=== PATIENT | male | born 1975 | race Caucasian/White ===

== ENCOUNTER 2020-08-24 21:06 | Emergency (ER) | payer OTHER ==
[2020-08-24 21:15] VITALS: RESP 18; TEMP 98
[2020-08-24] MEDS ORDERED: hydrALAZINE HCL 20 MG/ML 1 ML VIAL IVP STA (21:33)
[2020-08-24] MEDS ORDERED: LORazepam 2 MG/ML INJ IV STA (21:33)
[2020-08-24] MEDS ORDERED: SODIUM CHLORIDE 0.9% 1,000 ML IV ONE (21:34)
--- NOTE | 2020-08-24 21:36 | ED ---
General Adult HPI - General Source: patient, EMS, RN notes reviewed, old records reviewed Mode of arrival: EMS Limitations: no limitations <Jarrod Long - Last Filed: 08/24/20 22:09> <Jarrod Farr - Last Filed: 08/24/20 23:08> - General Chief complaint: Recheck/Abnormal Lab/Rx Stated complaint: Hypertension Time Seen by Provider: 08/24/20 21:10 - History of Present Illness Initial comments: Is a 45-year-old male who presents emergency department stating that he went to the rehab center for heroin abuse methamphetamine abuse alcohol abuse. Patient states on arrival his blood pressure okay but later in the day he started having some blurred vision and felt a little bit lightheaded and they took his blood pressure was extremely elevated so he came to the emergency department. Patient denies shortness of breath difficulty breathing or chest pain. Patient denies any palpitations. Heroin and methamphetamine earlier in the day. Patient denies any abdominal pain patient denies nausea vomiting diarrhea. (Jarrod Long) - Related Data Home Medications Medication Instructions Recorded Confirmed Acetaminophen [Tylenol] 650 mg PO Q4H PRN 08/24/20 08/24/20 Calcium/Magnesium 1000mg/500mg 1 tab PO TID PRN 08/24/20 08/24/20 Calcium/Magnesium/Zinc 2 tab PO TID PRN 08/24/20 08/24/20 [Hknldhr-Amulljhej-Init Tablet] Chlorpheniramine Maleate 4 mg PO Q4H PRN 08/24/20 08/24/20 [Chlor-Trimeton] Ibuprofen [Motrin] 600 mg PO Q6H PRN 08/24/20 08/24/20 Losartan [Cozaar] 50 mg PO DAILY@59908/24/20 08/24/20 Multivitamins, Thera [Multivitamin 1 tab PO DAILY@59908/24/20 08/24/20 (formulary)] Thiamine [Vitamin B-1] 100 mg PO DAILY@59908/24/20 08/24/20 Zofran 2mg/Ml 4 mg IM Q6H PRN 08/24/20 08/24/20 amLODIPine [Norvasc] 5 mg PO DAILY@59908/24/20 08/24/20 busPIRone HCl [Buspar] 10 mg PO DIRECTED PRN 08/24/20 08/24/20 cloNIDine HCL [Catapres] 0.1 mg PO Q4H PRN 08/24/20 08/24/20 ondansetron HCL [Zofran] 8 mg PO Q6H PRN 08/24/20 08/24/20 traZODone HCL 50 - 150 mg PO HS 08/24/20 08/24/20 Previous Rx's Medication Instructions Recorded lisinopriL [Zestril] 10 mg PO DAILY #30 tab 08/24/20 Allergies Allergy/AdvReac Type Severity Reaction Status Date / Time bee venom protein (honey bee) Allergy Anaphylaxis Verified 08/24/20 21:42 Review of Systems ROS Other: All systems not noted in ROS Statement are negative. <Jarrod Long - Last Filed: 08/24/20 22:09> ROS Other: All systems not noted in ROS Statement are negative. <Jarrod Farr - Last Filed: 08/24/20 23:08> ROS Statement: Those systems with pertinent positive or pertinent negative responses have been documented in the HPI. Past Medical History Past Medical History: Hypertension History of Any Multi-Drug Resistant Organisms: None Reported Past Surgical History: Orthopedic Surgery, Tonsillectomy Additional Past Surgical History / Comment(s): L forearm metal plate 1996 Past Psychological History: No Psychological Hx Reported Smoking Status: Heavy tobacco smoker Past Alcohol Use History: Abuse Past Drug Use History: Heroin <Jarrod Long - Last Filed: 08/24/20 22:09> General Exam Limitations: no limitations <Jarrod Lnog - Last Filed: 08/24/20 22:09> General appearance: alert, in no apparent distress Head exam: Present: atraumatic, normocephalic, normal inspection Eye exam: Present: normal appearance, PERRL, EOMI. Absent: scleral icterus, con junctival injection, periorbital swelling ENT exam: Present: normal exam, mucous membranes moist Neck exam: Present: normal inspection. Absent: tenderness, meningismus, lymphadenopathy Respiratory exam: Present: normal lung sounds bilaterally. Absent: respiratory distress, wheezes, rales, rhonchi, stridor Cardiovascular Exam: Present: regular rate, normal rhythm, normal heart sounds. Absent: systolic murmur, diastolic murmur, rubs, gallop, clicks GI/Abdominal exam: Present: soft, normal bowel sounds. Absent: distended, tenderness, guarding, rebound, rigid Extremities exam: Present: normal inspection, full ROM, normal capillary refill. Absent: tenderness, pedal edema, joint swelling, calf tenderness Back exam: Present: normal inspection Neurological exam: Present: alert, oriented X3, CN II-XII intact Psychiatric exam: Present: normal affect, normal mood Skin exam: Present: warm, dry, intact, normal color. Absent: rash <Jarrod Farr - Last Filed: 08/24/20 23:08> - General Exam Comments Initial Comments: GENERAL: Patient is well-developed and well-nourished. Patient is nontoxic and well- hydrated and is in no acute distress. ENT: Neck is soft and supple. No significant lymphadenopathy is noted. Oropharynx is clear. Moist mucous membranes. Neck has full range of motion without eliciting any pain. EYES: The sclera were anicteric and conjunctiva were pink and moist. Extraocular movements were intact and pupils were equal round and reactive to light. Eyelids were unremarkable. PULMONARY: Unlabored respirations. Good breath sounds bilaterally. No audible rales rhonchi or wheezing was noted. CARDIOVASCULAR: There is a regular rate and rhythm without any murmurs gallops or rubs. ABDOMEN: Soft and nontender with normal bowel sounds. SKIN: Skin is clear with no lesions or rashes and otherwise unremarkable. NEUROLOGIC: Patient is alert and oriented x3. Cranial nerves II through XII are grossly intact. Motor and sensory are also intact. Normal speech, volume and content. Symmetrical smile. MUSCULOSKELETAL: Normal extremities with adequate strength and full range of motion. LYMPHATICS: No significant lymphadenopathy is noted PSYCHIATRIC: Normal psychiatric evaluation. (Jarrod Long) Course <Jarrod Farr - Last Filed: 08/24/20 23:08> Vital Signs 08/24/20 08/24/20 21:07 22:30 Temperature 98.0 F Pulse Rate 85 88 Respiratory 18 18 Rate Blood Pressure 193/117 185/106 O2 Sat by Pulse 97 99 Oximetry - Reevaluation(s) Reevaluation #1: 08/24/20 23:07 Medical record is reviewed (Jarrod Farr) Reevaluation #2: 08/24/20 23:07 Patient is blood pressures improved (Jarrod Farr) Reevaluation #3: 08/24/20 23:07 Patient informed of results are questions are answered (Jarrod Farr) Medical Decision Making <Jarrod Long - Last Filed: 08/24/20 22:09> - Lab Data Result diagrams: 08/24/20 21:45 08/24/20 21:45 <Jarrod Farr - Last Filed: 08/24/20 23:08> - Medical Decision Making EKG shows normal sinus rhythm at 65 bpm PA interval 156 QRS is 96 QT interval 448 QTC is 465. Patient's EKG shows no ST segment elevation or depression. Dr. Farr be taking over the care of bed 5. (Jarrod Long) 45 male to the ER for evaluation patient does have elevated blood pressure. Patient's blood pressures well-controlled currently will start on blood pressure medication and discharged home (Jarrod Farr) - Lab Data Lab Results 08/24/20 08/24/20 Range/Units 21:45 21:45 WBC 7.9 (3.8-10.6) k/uL RBC 4.68 (4.30-5.90) m/uL Hgb 14.8 (13.0-17.5) gm/dL Hct 44.5 (39.0-53.0) % MCV 95.1 (80.0-100.0) fL MCH 31.7 (25.0-35.0) pg MCHC 33.4 (31.0-37.0) g/dL RDW 12.6 (11.5-15.5) % Plt Count 248 (150-450) k/uL MPV 7.2 Neutrophils % 65 % Lymphocytes % 27 % Monocytes % 4 % Eosinophils % 1 % Basophils % 1 % Neutrophils # 5.1 (1.3-7.7) k/uL Lymphocytes # 2.2 (1.0-4.8) k/uL Monocytes # 0.3 (0-1.0) k/uL Eosinophils # 0.1 (0-0.7) k/uL Basophils # 0.1 (0-0.2) k/uL Sodium 136 L (137-145) mmol/L Potassium 4.8 (3.5-5.1) mmol/L Chloride 102 (98-107) mmol/L Carbon Dioxide 25 (22-30) mmol/L Anion Gap 9 mmol/L BUN 15 (9-20) mg/dL Creatinine 0.64 L (0.66-1.25) mg/dL Est GFR (CKD-EPI)AfAm >90 (>60 ml/min/1.73 sqM) Est GFR (CKD-EPI)NonAf >90 (>60 ml/min/1.73 sqM) Glucose 117 H (74-99) mg/dL Calcium 9.7 (8.4-10.2) mg/dL Magnesium 1.9 (1.6-2.3) mg/dL Total Bilirubin 0.7 (0.2-1.3) mg/dL AST 86 H (17-59) U/L ALT 82 H (4-49) U/L Alkaline Phosphatase 77 (38-126) U/L Total Protein 8.8 H (6.3-8.2) g/dL Albumin 4.3 (3.5-5.0) g/dL Disposition <Jarrod Long - Last Filed: 08/24/20 22:09> Is patient prescribed a controlled substance at d/c from ED?: No <Jarrod Farr - Last Filed: 08/24/20 23:08> Clinical Impression: Hypertension Disposition: HOME SELF-CARE Condition: Good Instructions (If sedation given, give patient instructions): Hypertension (ED) Prescriptions: lisinopriL [Zestril] 10 mg PO DAILY #30 tab Referrals: None,Stated [Primary Care Provider] - 1-2 days
[2020-08-24 22:33] LABS: Basophils # (A) 0.1 k/uL (0-0.2); Basophils % (A) 1 %; Eosinophils # (A) 0.1 k/uL (0-0.7); Eosinophils % (A) 1 %; HCT 44.5 % (39.0-53.0); HGB 14.8 gm/dL (13.0-17.5); Lymphocytes # (A) 2.2 k/uL (1.0-4.8); Lymphocytes % (A) 27 %; MCH 31.7 pg (25.0-35.0); MCHC 33.4 g/dL (31.0-37.0); MCV 95.1 fL (80.0-100.0); Mean Platelet Volume 7.2; Monocytes # (A) 0.3 k/uL (0-1.0); Monocytes % (A) 4 %; Neutrophils # (A) 5.1 k/uL (1.3-7.7); Neutrophils % (A) 65 %; Platelet Count 248 k/uL (150-450); RBC 4.68 m/uL (4.30-5.90); RDW 12.6 % (11.5-15.5); WBC 7.9 k/uL (3.8-10.6)
[2020-08-24 22:53] LABS: ALT 82 U/L (4-49); AST 86 U/L (17-59); African American GFR (CKD) >90 (>60 ml/min/1.73 sqM); Albumin 4.3 g/dL (3.5-5.0); Alkaline Phosphatase 77 U/L (38-126); Anion Gap 9 mmol/L; Blood Urea Nitrogen 15 mg/dL (9-20); Calcium 9.7 mg/dL (8.4-10.2); Carbon Dioxide 25 mmol/L (22-30); Chloride 102 mmol/L (98-107); Glucose 117 mg/dL (74-99); Magnesium 1.9 mg/dL (1.6-2.3); Non-African American GFR(CKD) >90 (>60 ml/min/1.73 sqM); Potassium 4.8 mmol/L (3.5-5.1); Sodium 136 mmol/L (137-145); Total Bilirubin 0.7 mg/dL (0.2-1.3); Total Protein 8.8 g/dL (6.3-8.2)
[2020-08-24] MEDS ORDERED: lisinopriL 10 MG TAB PO STA ×2 (23:06→23:17)
[2020-08-24 23:49] VITALS: BP 142/99; PULSE 78
== END 2020-08-24 23:55 | disposition home or self-care (01) ==
LOC: EC 21:06 → SUPCPDRO 21:06 → EC 23:55
DX: I10 Essential (primary) hypertension (principal); F17.200 Nicotine dependence, unspecified, uncomplicated; Z79.899 Other long term (current) drug therapy; Z91.030 Bee allergy status
CPT/HCPCS: 36415; 93005; 80053; 83735; 85025; 99284; 96374; 96375; 96361 ×2; J2060; J0360